=== PATIENT | female | born 1965 | race Caucasian/White ===

== ENCOUNTER 2019-03-14 13:34 | Emergency (ER) | payer BC ==
[~2019-03-14] VITALS: Ht 180.3 cm; Wt 100.0 kg
[2019-03-14 13:37] VITALS: BP 146/71; PULSE 68; RESP 18; Ht 180.3 cm; Wt 100.0 kg
--- NOTE | 2019-03-14 14:33 | ERD ---
ER Documentation Chief Complaint Chief Complaint trip and fall c/o right ankle pain and lower back pain. no ko ROS All systems reviewed and are negative except as per history of present illness. Allergies Allergies: Coded Allergies: No Known Allergy (Unverified , 01/20/15) PMhx/Soc History of Surgery: No Anesthesia Reaction: No Hx Neurological Disorder: No Hx Respiratory Disorders: No Hx Cardiac Disorders: Yes Hx Psychiatric Problems: No Hx Miscellaneous Medical Probl: No Hx Alcohol Use: No Hx Substance Use: No Hx Tobacco Use: No Smoking Status: Never smoker Physical Exam Vitals Vital Signs Date Temp Pulse Resp B/P (MAP) Pulse Ox O2 O2 Flow FiO2 Time Delivery Rate 03/14/19 98.1 68 18 146/71 97 13:37 (96) Physical Exam Const: No acute distress Head: Atraumatic Eyes: Normal Conjunctiva ENT: Normal External Ears, Nose and Mouth. Neck: Full range of motion. No meningismus. Resp: Clear to auscultation bilaterally Cardio: Regular rate and rhythm, no murmurs Abd: Soft, non tender, non distended. Normal bowel sounds Skin: No petechiae or rashes Back: No midline or flank tenderness Ext: No cyanosis, or edema Neur: Awake and alert Psych: Normal Mood and Affect Departure Diagnosis: Primary Impression: Fall Condition: Stable Additional Instructions: Thank you very much for allowing us to participate in your care. Your health and safety is our top priority at [facility]. The evaluation in the emergency department has been done to rule out an acute emergency. Chronic, [id number]-[id number] conditions may have not been evaluated; therefore, you need to follow up with a primary care provider in the next 48h. If symptoms persist, worsen or new symptoms develop, then patient should return to the ED immediately. Call your primary care doctor TOMORROW for an appointment during the next 2-4 days and bring all the information provided. Have prescriptions filled and follow precisely the directions on the label. If the symptoms get worse and your provider is unavailable, return to the Emergency Department immediately. LB FAULKNER MD Mar 14, 2019 14:33
[2019-03-14] MEDS ORDERED: IBUPROFEN 200 MG TAB PO ONE (15:00)
[2019-03-14] MEDS ORDERED: HYDROCODONE/APAP (5/325) TAB PO ONE (15:00)
[2019-03-14] MEDS ORDERED: HYDR-4011 PO (15:53)
[2019-03-14] MEDS ORDERED: IBUP-1561 PO (15:53)
== END 2019-03-14 16:06 | disposition home or self-care (01) ==
LOC: FTE 13:34
DX: M25.571 Pain in right ankle and joints of right foot (principal); M54.5 Low back pain
CPT/HCPCS: 72100; 73562; Z7502; Z7610